=== PATIENT | male | born 1960 | race Caucasian/White ===

== ENCOUNTER 2023-12-10 13:58 | Emergency (ER) | payer OTHER, SELFPAY ==
[2023-12-10] VITALS (12 sets, daily range): BP systolic 144–177; BP diastolic 77–103; PULSE 105–128; RESP 18–30; TEMP 36.8; O2SAT 94–97; BMI 26.4
--- NOTE | 2023-12-10 14:11 | DI.RAD.S_ITS ---
PROCEDURE: XR CHEST 1V INDICATIONS: Shortness of breath TECHNIQUE: One view of the chest was acquired. COMPARISON: None. FINDINGS: Surgical changes and devices: None. Lungs and pleura: Lungs are clear. No pleural effusions or pneumothorax. Mediastinum: Mediastinal contours appear normal. Heart size is normal. Bones and chest wall: No suspicious bony lesions. Overlying soft tissues appear unremarkable. IMPRESSION: No acute cardiopulmonary abnormality is seen. Dictated by: Leyla Nazario M.D. on 12/10/2023 at 14:43 Approved by: Leyla Nazario M.D. on 12/10/2023 at 14:44
--- NOTE | 2023-12-10 14:27 | DI.CT.S_ITS ---
PROCEDURE: CT CERVICAL SPINE WO CON INDICATIONS: fall/hit head TECHNIQUE: Noncontrast 3 mm thick sections acquired from the skull base to the T4 level. Sagittal and coronal reformats were then constructed. For radiation dose reduction, the following was used: automated exposure control, adjustment of mA and/or kV according to patient size. COMPARISON: None. FINDINGS: Image quality: Excellent. Bones: No acute fractures or dislocations. Moderate chronic T4 compression fracture. Visualized superior ribs are intact. Soft tissues: Prevertebral soft tissues are normal in thickness. No paravertebral hematomas. No apical pneumothoraces. IMPRESSION: No acute fracture. No osseous lesion. If symptoms and/or clinical suspicion for pathology persist, further assessment with MRI or bone scan may be helpful for further assessment. Dictated by: Leyla Nazario M.D. on 12/10/2023 at 16:00 Approved by: Leyla Nazario M.D. on 12/10/2023 at 16:02
--- NOTE | 2023-12-10 14:27 | DI.CT.S_ITS ---
PROCEDURE: CT HEAD/BRAIN WO CON INDICATIONS: fall/hit head TECHNIQUE: Noncontrast 4.5 mm thick angled axial sections acquired from the foramen magnum to the vertex, with coronal and sagittal reformats. For radiation dose reduction, the following was used: automated exposure control, adjustment of mA and/or kV according to patient size. COMPARISON: None. FINDINGS: Image quality: Diagnostic. CSF spaces: Basal cisterns are patent. No extra-axial fluid collections. Ventricles are normal in size and shape. Brain: No midline shift. No intracranial masses or hemorrhage. Roa-white matter interface is normal. Skull and face: Calvarium and visualized facial bones are intact, without suspicious lesions. Sinuses: Visualized sinuses and mastoids are clear. IMPRESSION: No acute intracranial pathology. Dictated by: Leyla Nazario M.D. on 12/10/2023 at 16:00 Approved by: Leyla Nazario M.D. on 12/10/2023 at 16:00
[2023-12-10 14:34] LABS: Add Manual Diff / Slide Review NO; Basophils Absolute Auto 0 /uL (0-100); Basophils Percent Auto 0.3 % (0-2); Eosinophils Absolute Auto 0 /uL (0-450); Eosinophils Percent Auto 0.1 % (2-4); Hematocrit 39.3 % (41-53); Hemoglobin 13.6 g/dL (13.5-17.5); Lymphocytes Absolute Auto 3300 /uL (1100-4500); Lymphocytes Percent Auto 27.3 % (25-40); Mean Corpuscular HGB Conc 34.7 % (30-36); Mean Corpuscular Hemoglobin 31.7 PG (26-34); Mean Corpuscular Volume 91.5 fL (80-100); Monocytes Absolute Auto 1000 /uL (0-900); Monocytes Percent Auto 7.9 % (3-14); Neutrophils Absolute Auto 7900 /uL (1500-7000); Neutrophils Percent Auto 64.4 % (50-75); Platelet Count 98 X10^3/uL (150-400); Red Cell Distribution Width 15.1 % (11.6-14.8); White Blood Cell Count 12.2 X10^3/uL (4.5-11.0)
[2023-12-10] MEDS: SODIUM CHLORIDE 0.9% 1,000 ML 1000 ML IV (14:35)
--- NOTE | 2023-12-10 14:36 | DI.RAD.S_ITS ---
PROCEDURE: XR SHOULDER RT MIN 2V INDICATIONS: fall/bruising TECHNIQUE: 3 views of the shoulder were acquired. COMPARISON: None. FINDINGS: Bones: No fractures or dislocations. No suspicious bony lesions. Visualized ribs appear intact. Soft tissues: No suspicious soft tissue calcifications. IMPRESSION: No acute osseous abnormality. If there is continued clinical concern or persistent symptoms, repeat radiographs or cross-sectional imaging (e.g. CT, MRI) may be helpful for further evaluation. Approved by: Jonathan Willams M.D. on 12/10/2023 at 15:11
--- NOTE | 2023-12-10 14:36 | DI.RAD.S_ITS ---
PROCEDURE: XR ELBOW RT 2V INDICATIONS: fall/bruising TECHNIQUE: 2 views of the elbow were acquired. COMPARISON: None. FINDINGS: Bones: No acute fractures or dislocations. No suspicious bony lesions. Soft tissues: No elbow joint effusion. No suspicious soft tissue calcifications. IMPRESSION: No acute osseous abnormality. If there is continued clinical concern or persistent symptoms, repeat radiographs or cross-sectional imaging (e.g. CT, MRI) may be helpful for further evaluation. Approved by: Jonathan Willams M.D. on 12/10/2023 at 15:08
[2023-12-10 14:47] LABS: Prothrombin Time 10.9 SECONDS (9.4-12.5)
[2023-12-10 15:08] LABS: Lactate (Lactic Acid) 2.5 mmol/L (0.7-2.1)
[2023-12-10 15:09] LABS: Alanine Aminotransferase 129 IU/L (<50); Albumin Globulin Ratio 1.1 (1.0-2.8); Alkaline Phosphatase 144 U/L (38-126); Aspartate Aminotransferase 228 IU/L (17-59); BUN Creatinine Ratio 33.3 (6-22); Bilirubin Total 3.2 mg/dL (0.2-1.3); Blood Urea Nitrogen 16 mg/dL (9-20); Calcium 8.9 mg/dL (8.4-10.2); Carbon Dioxide 23 mmol/L (22-32); Chloride 87 mmol/L (98-107); Estimated Glomerular Filt Rate > 60 mL/min (>60); Globulin 3.7 g/dL (1.7-4.1); Glucose 161 mg/dL (80-110); HEMOLYSIS < 15 (0-50); Potassium 2.8 mmol/L (3.4-5.1); Sodium 131 mmol/L (137-145); Total Protein 7.7 g/dL (6.3-8.2)
[2023-12-10 15:21] LABS: NT-proBNP (BNP-Adult 18+) 151 pg/mL (<125); Troponin I < 0.012 ng/mL (0.01-0.034)
[2023-12-10 15:36] LABS: COVID-19 CEPHEID 4-PLEX PCR Negative (Negative); Influenza A - CEPHEID Flu A NEGATIVE (NEGATIVE); Influenza B - CEPHEID Flu B NEGATIVE (NEGATIVE); Respiratory Syncytial Virus Negative (Negative)
[2023-12-10 16:11] LABS: Reflexed Lactate in 2 Hours Y
--- NOTE | 2023-12-10 16:27 | ED.FALL ---
HPI - Fall General Chief Complaint: Fall Stated Complaint: GLF, head hit head, no blood thinners Time Seen by Provider: 12/10/23 16:17 Source: patient Mode of arrival: Wheelchair Limitations: no limitations History of Present Illness HPI Narrative: 63-year-old male history of chronic alcohol use who presents with complaint of feeling dizzy for the past day, patient states felt lightheaded like he might pass out. You did volunteer hit his head almost car there has no loss of consciousness. Denies headache or neck pain. Patient states he had some abdominal pain yesterday but none today. He denies chest pain, denies shortness of breath. He states he had some nausea but no vomiting. States he had belly pain yesterday but states he was not able to have a bowel movement for several days and then had a large 1 yesterday afternoon which made him feel much better. He denies diarrhea, he denies black or bloody stools. Denies any difficulty with bowel movements today. Has not appreciated difficulty with urination. He states no difficulty with breathing. No cough cold congestion. He has had some mild swelling in his feet. States he does have some numbness in his feet that make it difficult to get around he states that has been there for some time. He does not see a physician regularly. He denies any prescription medications. Denies any surgeries. No known drug allergies. No tobacco, drinks approximately a half pt daily, uses marijuana but denies other recreational drugs. He is accompanied by his sister. Related Data Previous Rx's Medication Instructions Recorded nitrofurantoin 100 mg PO Q12H 7 days #14 caps 12/10/23 monohydrate/macrocrystals 100 mg capsule (Macrobid) Allergies Allergy/AdvReac Type Severity Reaction Status Date / Time No Known Drug Allergies Allergy Verified 12/10/23 14:07 Review of Systems Review of Systems ROS Unobtainable: All systems reviewed & are unremarkable except as noted in HPI and below Patient History Social History Smoking Status: Never smoker Smoking Status: Never smoker alcohol intake frequency: 3 or more drinks per day Alcohol type: hard liquor Exam Narrative Exam Narrative: GENERAL: Alert and oriented x three, male in mild distress. HEENT: Head normocephalic, atraumatic, EOMI, pupils reactive, face symmetric, moist mucous membranes NECK: Supple, full range of motion, no cervical vertebral tenderness. CARDIOVASCULAR: Tachycardic but Regular rate and rhythm without murmurs, rubs or gallops. No JVD. Trace pedal edema. RESPIRATORY: Breath sounds equal bilaterally, no wheezes rales or rhonchi. No tachypnea accessory muscle use. No chest wall tenderness. ABDOMEN: Soft, nontender. Nondistended. Normoactive bowel sounds all 4 quadrants. No guarding or rebound, rigidity, no mass : No CVA tenderness EXTREMITIES: Normal range of motion, no clubbing or edema. Neurovascularly intact. NEUROLOGICAL: Cranial nerves II through XII grossly intact. Moving all extremities SKIN: Warm, dry, no petechiae, no rashes or lesions. Initial Vital Signs Initial Vital Signs: Vital Signs Temperature 98.2 F 12/10/23 14:01 Pulse Rate 128 H 12/10/23 14:01 Respiratory Rate 20 12/10/23 14:01 Blood Pressure 155/103 H 12/10/23 14:01 Pulse Oximetry 96 12/10/23 14:01 Oxygen Delivery Method Room Air 12/10/23 14:01 Course Orders Ordered: ED Orders 12/10/23 14:11 XR chest 1V Stat Measure peak expiratory flow ONCE RT Consult Eval and Treat NOW 12/10/23 14:18 EKG-12 Lead Stat 12/10/23 14:20 Complete Blood Count AUTO DIFF Stat Comprehensive Metabolic Panel Stat Covid-19 + FLU A/B + RSV - PCR Stat Lactate (Lactic Acid) Stat NT-proBNP (BNP-Adult 18+) Stat Prothrombin Time INR Stat Troponin I Stat 12/10/23 14:27 CT cervical spine wo con Stat CT head/brain wo con Stat 12/10/23 14:36 XR elbow RT 2V Stat XR shoulder RT min 2V Stat 12/10/23 16:30 Ictotest Urine Stat Urinalysis and Microscopic Stat Urine Culture Stat Discontinued Medications Sodium Chloride (Normal Saline 0.9%) 1,000 mls @ 1,000 mls/hr IV BOLUS ONE Stop: 12/10/23 15:28 Last Infusion: 12/10/23 16:37 Dose: Infused Documented By: Admin: 12/10/23 14:35 Dose: 1,000 mls/hr Documented By: ERNESTINA Nitrofurantoin Macrocrystals (Nitrofurantoin Er 100 Mg Capsule) 100 mg PO NOW ONE Stop: 12/10/23 17:48 Last Admin: 12/10/23 18:22 Dose: 100 mg Documented By: BRIANNE Potassium Chloride (Potassium Chloride 20 Meq Tab) 40 meq PO NOW ONE Stop: 12/10/23 17:27 Last Admin: 12/10/23 18:22 Dose: 40 meq Documented By: BRIANNE Vital Signs Vital signs: Vital Signs - 8 hr 12/10/23 14:01 12/10/23 14:15 12/10/23 14:16 Temperature 98.2 F Pulse Rate 128 H 120 H Respiratory Rate 20 Blood Pressure 155/103 H 158/102 H Pulse Oximetry 96 Oxygen Delivery Method Room Air 12/10/23 14:16 12/10/23 14:30 12/10/23 14:30 Temperature Pulse Rate 119 H 126 H Respiratory Rate 25 H 24 Blood Pressure 144/88 H Pulse Oximetry 94 Oxygen Delivery Method 12/10/23 15:03 12/10/23 15:21 12/10/23 15:21 Temperature Pulse Rate 116 H 108 H Respiratory Rate 18 Blood Pressure 156/97 H Pulse Oximetry 96 97 Oxygen Delivery Method 12/10/23 15:30 12/10/23 15:30 12/10/23 16:00 Temperature Pulse Rate 107 H 105 H Respiratory Rate 22 24 Blood Pressure 177/93 H Pulse Oximetry 96 94 Oxygen Delivery Method 12/10/23 16:00 12/10/23 16:30 12/10/23 16:30 Temperature Pulse Rate 116 H Respiratory Rate 30 H Blood Pressure 165/89 H 170/97 H Pulse Oximetry 95 Oxygen Delivery Method 12/10/23 17:00 12/10/23 17:00 12/10/23 17:30 Temperature Pulse Rate 116 H Respiratory Rate 19 Blood Pressure 170/94 H 150/77 H Pulse Oximetry 94 Oxygen Delivery Method 12/10/23 17:30 12/10/23 18:00 12/10/23 18:00 Temperature Pulse Rate 119 H 113 H Respiratory Rate 25 H 23 Blood Pressure 156/91 H Pulse Oximetry 96 96 Oxygen Delivery Method MDM - Fall Lab Data 12/10/23 14:20 12/10/23 14:20 Labs: Lab Results 12/10/23 12/10/23 Range/Units 14:20 16:30 WBC 12.2 H (4.5-11.0) X10^3/uL RBC 4.30 L (4.5-5.9) X10^6/uL Hgb 13.6 (13.5-17.5) g/dL Hct 39.3 L (41-53) % MCV 91.5 (80-100) fL MCH 31.7 (26-34) PG MCHC 34.7 (30-36) % RDW 15.1 H (11.6-14.8) % Plt Count 98 L (150-400) X10^3/uL Neut % (Auto) 64.4 (50-75) % Lymph % (Auto) 27.3 (25-40) % Maverick % (Auto) 7.9 (3-14) % Eos % (Auto) 0.1 L (2-4) % Baso % (Auto) 0.3 (0-2) % Neut # (Auto) 7900 H (0158-7064) /uL Lymph # (Auto) 3300 (4826-8613) /uL Maverick # (Auto) 1000 H (0-900) /uL Eos # (Auto) 0 (0-450) /uL Baso # (Auto) 0 (0-100) /uL PT 10.9 (9.4-12.5) SECONDS INR 1.0 (0.9-1.3) Sodium 131 L (137-145) mmol/L Potassium 2.8 L (3.4-5.1) mmol/L Chloride 87 L (98-107) mmol/L Carbon Dioxide 23 (22-32) mmol/L BUN 16 (9-20) mg/dL Creatinine 0.48 L (0.66-1.25) mg/dL Estimated GFR > 60 (>60) mL/min BUN/Creatinine Ratio 33.3 H (6-22) Glucose 161 H (80-110) mg/dL Lactate 2.5 H 2.0 (0.7-2.1) mmol/L Calcium 8.9 (8.4-10.2) mg/dL Total Bilirubin 3.2 H (0.2-1.3) mg/dL AST 228 H (17-59) IU/L ALT 129 H (<50) IU/L Alkaline Phosphatase 144 H (38-126) U/L Troponin I < 0.012 (0.01-0.034) ng/mL NT-Pro-B Natriuret Pep 151 H (<125) pg/mL Total Protein 7.7 (6.3-8.2) g/dL Albumin 4.0 (3.5-5.0) g/dL Globulin 3.7 (1.7-4.1) g/dL Albumin/Globulin Ratio 1.1 (1.0-2.8) Urine Color Chauncey Urine Appearance Clear Urine pH 6.5 (4.5-8.0) Ur Specific [place] >=1.030 H (1.000-1.035) Urine Protein 3+ H (Negative) Urine Glucose (UA) 1+ H (Negative) g/dL Urine Ketones 3+ H (NEGATIVE) Urine Occult Blood 2+ H (Negative) Urine Nitrate Positive H (Negative) Urine Bilirubin 2+ H (NEGATIVE) Ur Bilirubin Confirm TNP Urine Urobilinogen 4.0 H (0.2) E.U./dL Ur Leukocyte Esterase Negative (NEGATIVE) Urine RBC 1-5/hpf (0-5/HPF) Urine WBC 5-10/hpf H (0-5/HPF) Ur Squamous Epith Cells 5-10 /hpf H (0-5/HPF) Amorphous Sediment 2+ Urine Bacteria Many (>30) H (None) Granular Casts 1-5/lpf (None) Urine Mucus 1+ H (Negative) Ur Culture Indicated? Specimen cultured Vol Urine Centrifuged 10ml (spun) SARS-CoV-2 (PCR) Negative (Negative) Influenza A (RT-PCR) Flu a negative (NEGATIVE) Influenza B (RT-PCR) Flu b negative (NEGATIVE) RSV (PCR) Negative (Negative) Imaging Data CT scan - head: Radiologist's Impression: Close Shoulder X-Ray (Signed) Jonathan Willams - 12/10/23 Elbow X-Ray (Signed) Jonathan Willams - 12/10/[address] (Signed) Leyla Nazario - 12/10/[address] (Signed) Lelya Nazario - 12/10/23 Chest X-Ray (Signed) Leyla Nazario - 12/10/[address] [address] [address] Scan Report Signed Patient: Julio Sexton MR#: [id number] : 1960 Acct:[id number] Age/Sex: 63 / M Date of Service: 12/10/23 Loc: ED Accession Number: [id number] Procedure: CT head/brain wo con Ordering Provider: Jaylin Pineda D.O. PROCEDURE: CT HEAD/BRAIN WO CON INDICATIONS: fall/hit head TECHNIQUE: Noncontrast 4.5 mm thick angled axial sections acquired from the foramen magnum to the vertex, with coronal and sagittal reformats. For radiation dose reduction, the following was used: automated exposure control, adjustment of mA and/or kV according to patient size. COMPARISON: None. FINDINGS: Image quality: Diagnostic. CSF spaces: Basal cisterns are patent. No extra-axial fluid collections. Ventricles are normal in size and shape. Brain: No midline shift. No intracranial masses or hemorrhage. Roa-white matter interface is normal. Skull and face: Calvarium and visualized facial bones are intact, without suspicious lesions. Sinuses: Visualized sinuses and mastoids are clear. IMPRESSION: No acute intracranial pathology. Dictated by: Leyla Nazario M.D. on 12/10/2023 at 16:00 Approved by: Leyla Nazario M.D. on 12/10/2023 at 16:00 CT - cervical spine: Radiologist's Impression: Julio Sexton??63??M??1960 ? Allergy/Adv: No Known Drug Allergies Close Shoulder X-Ray (Signed) Jonathan Willams - 12/10/23 Elbow X-Ray (Signed) Jonathan Willams - 12/10/[address] (Signed) Leyla Nazario - 12/10/[address] (Signed) Leyla Nazario - 12/10/23 Chest X-Ray (Signed) Leyla Nazario - 12/10/23 Launch?[place] [address] CT Scan Report Signed Patient: Julio Sexton MR#: [id number] : 1960 Acct:[id number] Age/Sex: 63 / M Date of Service: 12/10/23 Loc: ED Accession Number: [id number] Procedure: CT cervical spine wo con Ordering Provider: Jaylin Pineda D.O. PROCEDURE: CT CERVICAL SPINE WO CON INDICATIONS: fall/hit head TECHNIQUE: Noncontrast 3 mm thick sections acquired from the skull base to the T4 level. Sagittal and coronal reformats were then constructed. For radiation dose reduction, the following was used: automated exposure control, adjustment of mA and/or kV according to patient size. COMPARISON: None. FINDINGS: Image quality: Excellent. Bones: No acute fractures or dislocations. Moderate chronic T4 compression fracture. Visualized superior ribs are intact. Soft tissues: Prevertebral soft tissues are normal in thickness. No paravertebral hematomas. No apical pneumothoraces. IMPRESSION: No acute fracture. No osseous lesion. If symptoms and/or clinical suspicion for pathology persist, further assessment with MRI or bone scan may be helpful for further assessment. Dictated by: Leyla Nazario M.D. on 12/10/2023 at 16:00 Approved by: Leyla Nazario M.D. on 12/10/2023 at 16:02 Chest x-ray: Radiologist's Impression: [place] [address] XRay Report Signed Patient: Julio Sexton MR#: [id number] : 1960 Acct:[id number] Age/Sex: 63 / M Date of Service: 12/10/23 Loc: Accession Number: [id number] Procedure: XR chest 1V Ordering Provider: Jaylin Pineda D.O. PROCEDURE: XR CHEST 1V INDICATIONS: Shortness of breath TECHNIQUE: One view of the chest was acquired. COMPARISON: None. FINDINGS: Surgical changes and devices: None. Lungs and pleura: Lungs are clear. No pleural effusions or pneumothorax. Mediastinum: Mediastinal contours appear normal. Heart size is normal. Bones and chest wall: No suspicious bony lesions. Overlying soft tissues appear unremarkable. IMPRESSION: No acute cardiopulmonary abnormality is seen. Dictated by: Leyla Nazario M.D. on 12/10/2023 at 14:43 Approved by: Leyla Nazario M.D. on 12/10/2023 at 14:44 Extremity x-ray #1: Radiologist's Impression: Julio Sexton??63??M??1960 ? Allergy/Adv: No Known Drug Allergies Close Shoulder X-Ray (Signed) Jonathan Willams - 12/10/23 Elbow X-Ray (Signed) Jonathan Willams - 12/10/[address] (Signed) Leyla Nazario - 12/10/[address] (Signed) Leyla Nazario - 12/10/23 Chest X-Ray (Signed) Leyla Nazario - 12/10/23 Launch?[facility] [address] [address] XRay Report Signed Patient: Julio Sexton MR#: [id number] : 1960 Acct:[id number] Age/Sex: 63 / M Date of Service: 12/10/23 Loc: ED Accession Number: [id number] Procedure: XR shoulder RT min 2V Ordering Provider: Jaylin Pineda D.O. PROCEDURE: XR SHOULDER RT MIN 2V INDICATIONS: fall/bruising TECHNIQUE: 3 views of the shoulder were acquired. COMPARISON: None. FINDINGS: Bones: No fractures or dislocations. No suspicious bony lesions. Visualized ribs appear intact. Soft tissues: No suspicious soft tissue calcifications. IMPRESSION: No acute osseous abnormality. If there is continued clinical concern or persistent symptoms, repeat radiographs or cross-sectional imaging (e.g. CT, MRI) may be helpful for further evaluation. Approved by: Jonathan Willams M.D. on 12/10/2023 at 15:11 Extremity x-ray #2: Radiologist's Impression: [address] [address] XRay Report Signed Patient: Julio Sexton MR#: [id number] : 1960 Acct:[id number] Age/Sex: 63 / M Date of Service: 12/10/23 Loc: ED Accession Number: [id number] Procedure: XR elbow RT 2V Ordering Provider: Jaylin Pineda D.O. PROCEDURE: XR ELBOW RT 2V INDICATIONS: fall/bruising TECHNIQUE: 2 views of the elbow were acquired. COMPARISON: None. FINDINGS: Bones: No acute fractures or dislocations. No suspicious bony lesions. Soft tissues: No elbow joint effusion. No suspicious soft tissue calcifications. IMPRESSION: No acute osseous abnormality. If there is continued clinical concern or persistent symptoms, repeat radiographs or cross-sectional imaging (e.g. CT, MRI) may be helpful for further evaluation. Approved by: Jonathan Willams M.D. on 12/10/2023 at 15:08 ECG Data Attestation: I personally reviewed and interpreted this ECG as follows: Prior ECG tracings: not available for review Interpretation: Sinus tachycardia rate of 117 NH 142 QRS of [address] No acute [address] elevation depression noted. Appears to have P waves with QRS is. No prior for comparison. 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 Patient's labs today Show mild leukocytosis hemoglobin of 13 platelets are 98, INR is 1 sodium is 131 potassium 2.8 was replaced orally, chloride 87 CO2 is 23 with a BUN of 16 creatinine of 0.48, glucose of 161 initial lactate was 2.5 on repeat is 2. Calcium is appropriate 8.9, bilirubin is 3.2, AST is 228, ALT is 129 alk-phos 4, negative troponin. Nitrite positive urine for wake on 5-10 squamous 5-10 many epithelials. COVID/influenza/RSV swab is negative Head CT negative C-spine is negative, chest x-ray shows no acute change, elbow and shoulder x-ray show no fracture. Discussed with patient he feels improved currently. He would like to return home. Discussed setting up with primary care as he does have neuropathy and changes consistent with chronic alcohol use. And does need follow-up. Patient's sister at bedside. Discharge Plan Departure Patient Disposition: Home Clinical Impression: Acute UTI, Hypokalemia, Fall Activity Restrictions/Additional Instructions: Follow up with primary care, contact information is included. Please call for an appointment You do have some electrolyte abnormalities your potassium was placed but should be rechecked in the next week. Your liver enzymes are elevated as well, this indicates damage to your liver from chronic alcohol use. Your urine does show signs of infection, please take antibiotics until completed. You received your 1st dose this evening, your next dose would be tomorrow morning. Prescription printed. Please return for new abdominal back or flank pain, persistent lightheadedness or passing out, new chest pain, shortness of breath, persistent vomiting, black or bloody stools or other new or concerning changes. Prescriptions: New nitrofurantoin monohyd/m-cryst [Macrobid] 100 mg capsule 100 mg PO Q12H 7 Days Qty: 14 0RF Rx Instructions: must administer with a meal/food Referrals: Miscellaneous,Doctor, MD [Primary Care Provider] - Stand Alone Forms: Patient Portal/API
[2023-12-10 16:45] LABS: Appearance Urine UA CLEAR; Bilirubin Urine UA 2+ (NEGATIVE); Color Urine UA ORANGE; Glucose Urine UA 1+ g/dL (Negative); Ketones Urine UA 3+ (NEGATIVE); Leukocyte Esterase Urine UA NEGATIVE (NEGATIVE); Nitrite Urine UA POSITIVE (Negative); Occult Blood Urine UA 2+ (Negative); Protein Urine UA 3+ (Negative); Specific Gravity Urine UA >=1.030 (1.000-1.035); pH Urine UA 6.5 (4.5-8.0)
[2023-12-10 17:16] LABS: Amorphous Sediment Urine 2+; Bacteria Urine Many (>30); Granular Casts Urine 1-5/LPF; RBC Urine 1-5/HPF (0-5/HPF); Squamous Epithelial Cell Urine 5-10 /HPF (0-5/HPF); Urine Volume 10mL (spun); WBC Urine 5-10/HPF (0-5/HPF)
[2023-12-10 17:17] LABS: Culture Indicated Urine Specimen Cultured; Mucus Urine 1+ (Negative)
[2023-12-10] MEDS: POTASSIUM CHLORIDE 20 MEQ TAB 40 MEQ PO (18:22)
[2023-12-10] MEDS: NITROFURANTOIN ER 100 MG CAPSULE PO (18:22)
== END 2023-12-10 18:35 | disposition home or self-care (01) ==
PROVIDERS: Emergency Provider Emergency Medicine
DX: N39.0 Urinary tract infection, site not specified (principal); E87.6 Hypokalemia; R06.02 Shortness of breath; W18.00XA Striking against unspecified object with subsequent fall, initial encounter; Z20.822 Contact with and (suspected) exposure to COVID-19
CPT/HCPCS: 0241U; 36415; 70450; 71045; 72125; 73030; 73070; 80053; 81001; 83605; 83880; 84484; 85025; 85610; 87086; 93005; 93010; 96360; 96361; 99284

== ENCOUNTER → 2023-12-18 11:10 | Outpatient (CLI) | payer OTHER, SELFPAY ==
[2023-12-18 12:35] LABS: Add Manual Diff / Slide Review NO; Basophils Absolute Auto 100 /uL (0-100); Basophils Percent Auto 0.6 % (0-2); Eosinophils Absolute Auto 0 /uL (0-450); Eosinophils Percent Auto 0.4 % (2-4); Hematocrit 37.1 % (41-53); Hemoglobin 12.9 g/dL (13.5-17.5); Lymphocytes Absolute Auto 4600 /uL (1100-4500); Lymphocytes Percent Auto 40.8 % (25-40); Mean Corpuscular HGB Conc 34.7 % (30-36); Mean Corpuscular Volume 92.1 fL (80-100); Monocytes Absolute Auto 1100 /uL (0-900); Monocytes Percent Auto 9.4 % (3-14); Neutrophils Absolute Auto 5400 /uL (1500-7000); Neutrophils Percent Auto 48.8 % (50-75); Platelet Count 415 X10^3/uL (150-400); Red Blood Cell Count 4.03 X10^6/uL (4.5-5.9); Red Cell Distribution Width 14.8 % (11.6-14.8); White Blood Cell Count 11.2 X10^3/uL (4.5-11.0)
[2023-12-18 12:47] LABS: Hemoglobin A1C% w Est Avg Glu 5.5 % (4.0-6.0)
[2023-12-18 13:06] LABS: Alanine Aminotransferase 36 IU/L (<50); Albumin 3.1 g/dL (3.5-5.0); Albumin Globulin Ratio 0.9 (1.0-2.8); Alkaline Phosphatase 107 U/L (38-126); Aspartate Aminotransferase 40 IU/L (17-59); BUN Creatinine Ratio 11.1 (6-22); Bilirubin Total 0.8 mg/dL (0.2-1.3); Blood Urea Nitrogen 6 mg/dL (9-20); Calcium 8.8 mg/dL (8.4-10.2); Carbon Dioxide 34 mmol/L (22-32); Chloride 91 mmol/L (98-107); Estimated Glomerular Filt Rate > 60 mL/min (>60); Globulin 3.3 g/dL (1.7-4.1); Glucose 154 mg/dL (80-110); HEMOLYSIS < 15 (0-50); Sodium 134 mmol/L (137-145); Total Protein 6.4 g/dL (6.3-8.2)
[2023-12-18 13:23] LABS: Potassium 2.6 mmol/L (3.4-5.1)
[2023-12-18 13:30] LABS: TSH w/ Reflex to FT4 4.14 uIU/mL (0.47-4.68)
[2023-12-18 13:51] LABS: Vitamin B12 935 pg/mL (239-931)
== END ==
PROVIDERS: PCP Family Medicine; Referring Provider Family Medicine; Visit Provider Family Medicine
DX: E87.6 Hypokalemia (principal); N39.0 Urinary tract infection, site not specified; R42 Dizziness and giddiness
CPT/HCPCS: 36415; 80053; 82607; 83036; 84443; 85025

== ENCOUNTER → 2023-12-31 11:29 | Outpatient (CLI) | payer OTHER, SELFPAY ==
[2023-12-31 13:31] LABS: BUN Creatinine Ratio 11.8 (6-22); Blood Urea Nitrogen 6 mg/dL (9-20); Calcium 7.3 mg/dL (8.4-10.2); Carbon Dioxide 33 mmol/L (22-32); Chloride 98 mmol/L (98-107); Estimated Glomerular Filt Rate > 60 mL/min (>60); Glucose 116 mg/dL (80-110); HEMOLYSIS < 15 (0-50); Sodium 136 mmol/L (137-145)
[2023-12-31 13:33] LABS: Potassium 2.7 mmol/L (3.4-5.1)
== END ==
PROVIDERS: PCP Family Medicine; Referring Provider Family Medicine; Visit Provider Family Medicine
DX: E87.6 Hypokalemia (principal)
CPT/HCPCS: 36415; 80048